=== PATIENT | male | born 1980 ===

== ENCOUNTER 2022-02-09 03:25 | Emergency (ER) | payer SELFPAY ==
[2022-02-09] MEDS ORDERED: ASPIRIN 325 MG TAB PO ONE (04:31)
[2022-02-09] MEDS ORDERED: fentaNYL 100 MCG/2 ML INJ IV ONE (04:31)
[2022-02-09] MEDS ORDERED: ONDANSETRON 4 MG/2 ML INJ IV ONE (04:31)
--- NOTE | 2022-02-09 05:09 | XRay Report ---
CHEST 1 VIEW INDICATION / CLINICAL INFORMATION: chest pain. COMPARISON: None available. FINDINGS: SUPPORT DEVICES: None. HEART / MEDIASTINUM: Heart size normal nonspecific slightly globular appearance of the cardiac silhou ette. LUNGS / PLEURA: Minimal stranding right cardiophrenic angle. Lungs otherwise are clear. BONES: No significant osseous abnormality. ADDITIONAL FINDINGS: No significant additional findings. IMPRESSION: 1. Mild globular appearance of the cardiac silhouette. Small pericardial effusion not excluded. 2. Nonspecific stranding right cardiophrenic angle may reflect atelectasis. Lungs otherwise are clear . Signer Name: Santy Combs II, MD Signed: 02/09/2022 5:04 AM Workstation Name: [id number]
[2022-02-09 05:43] LABS: INR 1.06 (0.87-1.13)
[2022-02-09 05:45] LABS: Red Blood Count 4.16 M/mm3 (3.65-5.03)
[2022-02-09 05:46] LABS: Hematocrit 38.4 % (35.5-45.6); Hemoglobin 13.1 gm/dl (11.8-15.2); Mean Corpuscular HGB Conc 34 % (32-34); Mean Corpuscular Volume 92 fl (84-94); Mean Platelet Volume 9.2 fl (6-12); Platelet Count 250 K/mm3 (140-440); Red Cell Distribution Width 14.1 % (13.2-15.2)
[2022-02-09 06:00] LABS: BUN/Creatinine Ratio 11; Blood Urea Nitrogen 10 mg/dL (9-20); Calcium 9.3 mg/dL (8.4-10.2); Hemolysis Index 53
[2022-02-09] MEDS ORDERED: HYDROmorphone 0.5 MG/0.5 ML INJ IV ONE (06:51)
[2022-02-09] MEDS ORDERED: KETOROLAC 30 MG/1 ML INJ IV ONE (06:51)
[2022-02-09] MEDS ORDERED: COLCHICINE 0.6 MG TAB PO ONE (06:51)
[2022-02-09 07:37] LABS: Basophils % (Manual) 0 % (0.0-1.8); Eosinophils % (Manual) 0 % (0.0-4.3); Total Cells Counted 100
[2022-02-09 07:38] LABS: Anisocytosis 1+; Hypochromasia 1+; Macrocytosis Few; Platelet Clumps 2+
--- NOTE | 2022-02-09 07:51 | Emergency Department Report ---
ED Chest Pain HPI - General Chief Complaint: Chest Pain Stated Complaint: CYNTHIA Time Seen by Provider: 02/09/22 06:09 Source: patient Mode of arrival: Stretcher Limitations: No Limitations - History of Present Illness Initial Comments: 41-year-old male with a past medical history of CHF, hypertension, gout presents to the hospital complaining of gout related pain since yesterday. Patient complains of severe pain to right wrist and bilateral feet. No trauma reported. Patient is left-hand dominant. He states he had "a little sharp chest pain" but states it was minor and comparison to his gout pain. Patient denies fever Severity scale (0 -10): 4 - Related Data Previous Rx's Medication Instructions Recorded Last Taken Type Colchicine 0.6 mg PO ONCE #1 tab 02/09/22 Unknown Rx HYDROcodone/APAP 5-325 [[place] 1 each PO Q4HR PRN #15 tablet 02/09/22 Unknown Rx 5/325] Indomethacin 50 mg PO Q8H PRN #30 cap 02/09/22 Unknown Rx Allergies Allergy/AdvReac Type Severity Reaction Status Date / Time No Known Allergies Allergy Verified 02/09/22 03:35 Heart Score - HEART Score History: Slightly suspicious EKG: Non-specific Age: < 45 Risk factors: 1-2 risk factors Troponin: < normal limit HEART Score: 2 - EKG Read Time Time EKG Completed: 03:56 EKG Read Time: 04:00 ED Review of Systems ROS: Stated complaint: CYNTHIA Other details as noted in HPI Comment: All other systems reviewed and negative ED Past Medical Hx - Past Medical History Previous Medical History?: Yes Hx Hypertension: Yes Hx Congestive Heart Failure: Yes Additional medical history: gout - Surgical History Past Surgical History?: No - Social History Smoking Status: Never Smoker Substance Use Type: Alcohol - Medications Home Medications: Home Medications Medication Instructions Recorded Confirmed Last Taken Type Colchicine 0.6 mg PO ONCE #1 tab 02/09/22 Unknown Rx HYDROcodone/APAP 5-325 [[place] 1 each PO Q4HR PRN #15 tablet 02/09/22 Unknown Rx 5/325] Indomethacin 50 mg PO Q8H PRN #30 cap 02/09/22 Unknown Rx ED Physical Exam - General Limitations: No Limitations - Other Other exam information: General: No acute distress Head: Atraumatic Eyes: normal appearance ENT: Moist mucous membranes Neck: Normal appearance, no midline tenderness Chest: Clear to auscultation bilaterally CV: Regular rate and rhythm Abdomen: Soft, normal bowel sounds, nontender, nondistended, no rebound or guarding Back: Normal inspection Extremity: Pain, swelling, and warmth to dorsum of right wrist. Limited movement secondary to pain. Multiple calluses noted to dorsal toes. Patient planes of pain at the bottom of his foot. No acute abnormality noted at the plantar surface of the foot. No abnormality noted to the ankle. Full range of motion. 2+ DP pulse Neuro: Alert O x 3, no facial asymmetry, speech clear, no gross motor sensory deficit Psych: Appropriate behavior Skin: No rash ED Course Vital Signs 02/09/22 03:35 Temperature 98.2 F Pulse Rate 96 H Respiratory 16 Rate Blood Pressure 163/104 O2 Sat by Pulse 99 Oximetry JOMAR score - Jomar Score Age > 65: (0) No Aspirin use within the Past 7 Days: (0) No 3 or more CAD Risk Factors: (0) No 2 or more Angina events in past 24 hrs: (0) No Known CAD with more than 50% Stenosis: (0) No Elevated Cardiac Markers: (0) No ST Deviation Greater than 0.5mm: (0) No JOMAR Score: 0 ED Medical Decision Making - Lab Data Result diagrams: 02/09/22 05:20 02/09/22 05:20 Lab Results 02/09/22 02/09/22 02/09/22 Range/Units 05:20 05:20 05:20 WBC 15.9 H (4.5-11.0) K/mm3 RBC 4.16 (3.65-5.03) M/mm3 Hgb 13.1 (11.8-15.2) gm/dl Hct 38.4 (35.5-45.6) % MCV 92 (84-94) fl MCH 32 (28-32) pg MCHC 34 (32-34) % RDW 14.1 (13.2-15.2) % Plt Count 250 (140-440) K/mm3 Lymph % (Auto) Front End Developer Javascript Html Css [place] % (Auto) Front End Developer Javascript Html Css Eos % (Auto) Front End Developer Javascript Html Css Baso % (Auto) Front End Developer Javascript Html Css Lymph # (Auto) Front End Developer Javascript Html Css [place] # (Auto) Front End Developer Javascript Html Css Eos # (Auto) Front End Developer Javascript Html Css Baso # (Auto) Front End Developer Javascript Html Css Add Manual Diff Complete Total Counted 100 Seg Neutrophils % Front End Developer Javascript Html Css Seg Neuts % (Manual) 83.0 H (40.0-70.0) % Band Neutrophils % 0 % Lymphocytes % (Manual) 9.0 L (13.4-35.0) % Reactive Lymphs % (Man) 0 % Monocytes % (Manual) 8.0 H (0.0-7.3) % Eosinophils % (Manual) 0 (0.0-4.3) % Basophils % (Manual) 0 (0.0-1.8) % Metamyelocytes % 0 % Myelocytes % 0 % Promyelocytes % 0 % Blast Cells % 0 % Nucleated RBC % Not Reportable Seg Neutrophils # Front End Developer Javascript Html Css Seg Neutrophils # Man 13.2 H (1.8-7.7) K/mm3 Band Neutrophils # 0.0 K/mm3 Lymphocytes # (Manual) 1.4 (1.2-5.4) K/mm3 Abs React Lymphs (Man) 0.0 K/mm3 Monocytes # (Manual) 1.3 H (0.0-0.8) K/mm3 Eosinophils # (Manual) 0.0 (0.0-0.4) K/mm3 Basophils # (Manual) 0.0 (0.0-0.1) K/mm3 Metamyelocytes # 0.0 K/mm3 Myelocytes # 0.0 K/mm3 Promyelocytes # 0.0 K/mm3 Blast Cells # 0.0 K/mm3 WBC Morphology Not Reportable Hypersegmented Neuts Not Reportable Hyposegmented Neuts Not Reportable Hypogranular Neuts Not Reportable Smudge Cells Not Reportable Toxic Granulation Not Reportable Toxic Vacuolation Not Reportable Dohle Bodies Not Reportable Pelger-Huet Anomaly Not Reportable Emily Rods Not Reportable Platelet Estimate Not Reportable Clumped Platelets 2+ Plt Clumps, EDTA Not Reportable Large Platelets Not Reportable Giant Platelets Not Reportable Platelet Satelliting Not Reportable Plt Morphology Comment Not Reportable RBC Morphology Not Reportable Dimorphic RBCs Not Reportable Polychromasia Not Reportable Hypochromasia 1+ Poikilocytosis Not Reportable Anisocytosis 1+ Microcytosis Not Reportable Macrocytosis Few Spherocytes Not Reportable Pappenheimer Bodies Not Reportable Sickle Cells Not Reportable Target Cells Not Reportable Tear Drop Cells Not Reportable Ovalocytes Not Reportable Helmet Cells Not Reportable [place] Bodies Not Reportable [place] Rings Not Reportable Angie Cells Not Reportable Bite Cells Not Reportable Crenated Cell Not Reportable Elliptocytes Not Reportable Acanthocytes (Spur) Not Reportable Rouleaux Not Reportable Hemoglobin C Crystals Not Reportable Schistocytes Not Reportable Malaria parasites Not Reportable Adilson Bodies Not Reportable Hem Pathologist Commnt No PT 15.3 H (12.2-14.9) Sec. INR 1.06 (0.87-1.13) Sodium 136 L (137-145) mmol/L Potassium 3.6 (3.6-5.0) mmol/L Chloride 98.8 (98-107) mmol/L Carbon Dioxide 18 L (22-30) mmol/L Anion Gap 23 mmol/L BUN 10 (9-20) mg/dL Creatinine 0.9 (0.8-1.3) mg/dL Estimated GFR > 60 ml/min BUN/Creatinine Ratio 11 % Glucose 93 (75-100) mg/dL Calcium 9.3 (8.4-10.2) mg/dL Troponin T < 0.010 (0.00-0.029) ng/mL NT-Pro-B Natriuret Pep 389.9 (0-450) pg/mL - EKG Data -: EKG Interpreted by Ar EKG shows normal: sinus rhythm, ST-T waves (LVH with repol) Rate: normal (96) - EKG Data When compared to previous EKG there are: previous EKG unavailable - Radiology Data Radiology results: report reviewed CHEST 1 VIEW INDICATION / CLINICAL INFORMATION: chest pain. COMPARISON: None available. FINDINGS: SUPPORT DEVICES: None. HEART / MEDIASTINUM: Heart size normal nonspecific slightly globular appearance of the cardiac silhouette. LUNGS / PLEURA: Minimal stranding right cardiophrenic angle. Lungs otherwise are clear. BONES: No significant osseous abnormality. ADDITIONAL FINDINGS: No significant additional findings. IMPRESSION: 1. Mild globular appearance of the cardiac silhouette. Small pericardial effusion not excluded. 2. Nonspecific stranding right cardiophrenic angle may reflect atelectasis. Lungs otherwise are clear. - Medical Decision Making 41-year-old male presents to the hospital with a gout related pain and mentioned also that he had some mild chest pain. Chest pain is atypical and has resolved spontaneously. EKG shows LVH with repull abnormality with negative troponin. Patient primarily here for gout and was treated with Toradol, Dilaudid, Zofran, and colchicine. Will be discharged with outpatient follow-up and meds Critical Care Time: No Critical care attestation.: If time is entered above; I have spent that time in minutes in the direct care of this critically ill patient, excluding procedure time. ED Disposition Clinical Impression: Atypical chest pain, Gout attack Disposition: 01 HOME / SELF CARE / HOMELESS Is pt being admited?: No Does the pt Need Aspirin: No Condition: Stable Instructions: Nonspecific Chest Pain, Adult, Low-Purine Eating Plan Additional Instructions: Take the medication as prescribed. Follow-up with your doctor or doctor/clinic provided. Return if symptoms worsen as indicated by your discharge instructions. Prescriptions: Colchicine 0.6 mg PO ONCE #1 tab Indomethacin 50 mg PO Q8H PRN #30 cap PRN Reason: Pain , Severe (7-10) HYDROcodone/APAP 5-325 [[place] 5/325] 1 each PO Q4HR PRN #15 tablet PRN Reason: Pain Referrals: DINA FARLEY MD [Staff Physician] - 3-5 Days (Primary care doctor) BETINA POZO MD [Staff Physician] - 3-5 Days (Cardiology) [facility] [Provider Group] - 3-5 Days (Primary care clinic) Time of Disposition: 07:56
[2022-02-09 07:55] VITALS: BP 145/83
--- NOTE | 2022-02-10 15:14 | Electrocardiograph Report ---
[facility] Test Date: 2022-02-09 Test Time: 03:56:22 Pat Name: ZE DUNLAP Department: Room: Gender: M Plant Nursery Worker: raquel : 1980 Requested By: DENIZ ROSARIO Order Number: [id number] Reading MD: Jaiden Perdomo Measurements Intervals [place] Rate: 96 P: 59 MN: 140 QRS: 13 QRSD: 99 T: 179 QT: 403 QTc: 509 Interpretive Statements Sinus rhythm Probable left atrial enlargement LVH with secondary repolarization abnormality Anterior ST elevation, probably due to LVH Prolonged QT interval No previous ECG available for comparison Electronically Signed On 02-10-2022 15:14:14 EDT by Jaiden Perdomo
== END 2022-02-09 09:58 | disposition home or self-care (01) ==
LOC: ED 03:25
DX: R07.89 Other chest pain (principal); M10.9 Gout, unspecified; I11.0 Hypertensive heart disease with heart failure; I50.9 Heart failure, unspecified; Z79.899 Other long term (current) drug therapy
CPT/HCPCS: 36415; 71045; 80048; 83880; 84484; 85007; 85025; 85610; 93005; 96374; 96375; 99284; J1170; J1885; J2405; J3010